=== PATIENT | male | born 1960 | race African-American/Black ===

== ENCOUNTER 2020-09-06 11:54 | Emergency (ER) | payer OTHER, SELFPAY | END 2020-09-06 13:05 | disposition home or self-care (01) | LOC: CSHERS 11:54 | DX: L03.012 Cellulitis of left finger (principal); I10 Essential (primary) hypertension; Z79.899 Other long term (current) drug therapy | CPT/HCPCS: 10060 ==

== ENCOUNTER 2020-09-09 15:57 | Inpatient (IN) | payer MEDICARE, SELFPAY ==
[2020-09-09 17:52] LABS: #Basophils 0.1 10x3/uL (0.0-0.2); #Monocytes 0.5 10x3/uL (0.0-1.1); %Basophils 0.5 % (0.0-2.0); %Lymphocytes 13.8 % (18.0-47.0); %Monocytes 4.9 % (0.0-10.0); %Neutrophils 80.6 % (40.0-75.0); Hemoglobin 14.1 g/dL (13.5-17.5); Mean Corpuscular HGB CONC 33.7 g/dL (32.0-36.0); Mean Corpuscular Hemoglobin 29.5 pg (27.0-33.0); Mean Corpuscular Volume 87.7 fl (81.2-95.1); Mean Platelet Volume 11.2 fl (7.4-10.4); Platelet Count 406 10x3/uL (150-450); RBC Distribution Width 11.5 % (11.5-14.5); Red Blood Cell (RBC) Count 4.78 10x6/uL (4.32-5.72); White Blood Cell (WBC) Count 9.9 10x3/uL (3.5-10.5)
[2020-09-09 18:07] LABS: ALT (SGPT) 22 U/L (8-55); AST (SGOT) 13 U/L (5-34); Albumin 4.6 g/dL (3.5-5.0); Alkaline Phosphatase 162 U/L (40-110); Anion Gap 26 mmol/L (10-20); BUN (Urea Nitrogen) 35 mg/dL (8.4-25.7); Bilirubin, Total 0.4 mg/dL (0.2-1.2); Calc. Creatinine Clearance 0 mL/min (70-130); Calcium 10.1 mg/dL (7.8-10.44); Carbon Dioxide 21 mmol/L (22-29); Chloride 94 mmol/L (98-107); Potassium 4.8 mmol/L (3.5-5.1); Protein, Total 9.6 g/dL (6.0-8.3); Sodium 136 mmol/L (136-145)
[2020-09-09 18:16] LABS: Bilirubin Neg (Negative); Blood, Urine Negative (Negative); Clarity Clear (Clear); Glucose, Urine (Dipstick) >=1000 mg/dL (Negative); Ketone, Urine 150 mg/dL (Negative); Leukocyte Negative (Negative); Nitrite Negative (Negative); Protein, Urine (Dipstick) 15 mg/dl (Neg-Trace); Specific Gravity, Urine 1.015 (1.002-1.036); Urobilinogen Normal mg/dL (Less than 2)
[2020-09-09 18:28] LABS: Glucose 780 mg/dL (70-105)
[2020-09-09] MEDS ORDERED: Insulin Regular 300 UNITS/3 ML VIAL ONE (19:00)
[2020-09-09] MEDS ORDERED: NS 0.9% w/ 20 MEQ KCL 1,000 ML IV PRN (19:57)
[2020-09-09] MEDS ORDERED: Sodium Chloride 0.9% 1,000 ML IV PRN ×2 (19:57)
[2020-09-09] MEDS ORDERED: Electrolyte Replacement Protocol 1 EACH IVPB PRN (19:57)
[2020-09-09] MEDS ORDERED: Dextrose 5 %-0.45 % NaCl 1,000 ML IV PRN (19:57)
[2020-09-09] MEDS ORDERED: D5 1/2 NS w/20 mEq KCL 1,000 ML IV PRN (19:57)
[2020-09-09] MEDS ORDERED: Ondansetron PF 4 MG/2 ML Vial IVP PRN (19:59)
[2020-09-09] MEDS ORDERED: Ondansetron ODT 4 MG TAB PO PRN (19:59)
[2020-09-09] MEDS ORDERED: HUMULIN R 100 UNITS in Sodium Chloride 0.9% 100 ML IVPB SCH (20:00)
[2020-09-09 20:11] LABS: Actual Bicarbonate (HCO3v) 8 mEq/L (22-28); Base Excess -17.3 mEq/L (-2.0 to +3.0); Calcium, Ionized (venous) 0.58 mmol/L (1.16-1.32); Chloride (VBG) 130 mmol/L (98-106); Hemoglobin (Hb) 5.4 g/dL (13.1-17.2); Potassium (VBG) 1.22 mmol/L (3.70-5.30); Puncture Site Other Site; Sodium 143.2 mmol/L (133-146); pH (venous) 7.28 (7.32-7.43)
[2020-09-09] MEDS ORDERED: INSULIN REGULAR IN 0.9 % NACL 100 UNIT/100 ML BAG ONE (20:20)
[2020-09-09] MEDS ORDERED: Atorvastatin Calcium 40 MG TAB PO SCH (21:00)
[2020-09-09 21:06] LABS: SARS-CoV-2 NAA Rapid Test Not Detected (NotDetected)
[2020-09-09 22:06] VITALS: BMI 26.7
[2020-09-09 22:21] LABS: Anion Gap 19 mmol/L (10-20); BUN (Urea Nitrogen) 30 mg/dL (8.4-25.7); Calc. Creatinine Clearance 56 mL/min (70-130); Calcium 9.1 mg/dL (7.8-10.44); Carbon Dioxide 20 mmol/L (22-29); Chloride 108 mmol/L (98-107); Glucose 484 mg/dL (70-105); Sodium 143 mmol/L (136-145)
[2020-09-09 22:22] LABS: Phosphorus 2.1 mg/dL (2.3-4.7)
[2020-09-09] MEDS: NS 0.9% w/ 20 MEQ KCL 1,000 ML IV PRN (22:31)
[2020-09-09] MEDS ORDERED: PHOS-NAK 1 PKT PACK PO SCH (23:15)
[2020-09-09 23:41] VITALS: TEMP 98.3
[2020-09-10] MEDS: NS 0.9% w/ 20 MEQ KCL 1,000 ML IV PRN (00:41)
[2020-09-10 01:07] LABS: Anion Gap 13 mmol/L (10-20); BUN (Urea Nitrogen) 27 mg/dL (8.4-25.7); Calc. Creatinine Clearance 66 mL/min (70-130); Calcium 8.7 mg/dL (7.8-10.44); Carbon Dioxide 25 mmol/L (22-29); Chloride 111 mmol/L (98-107); Glucose 316 mg/dL (70-105); Sodium 145 mmol/L (136-145)
[2020-09-10] MEDS ORDERED: D5 1/2 NS w/20 mEq KCL 1,000 ML IV PRN (02:39)
[2020-09-10 04:33] LABS: #Eosinphils 0.1 10x3/uL (0.0-0.5); #Monocytes 0.6 10x3/uL (0.0-1.1); #Neutrophils 4.6 10x3/uL (1.5-8.4); %Basophils 0.5 % (0.0-2.0); %Eosinophils 0.8 % (0.0-6.0); %Lymphocytes 33.1 % (18.0-47.0); %Monocytes 7.5 % (0.0-10.0); %Neutrophils 57.8 % (40.0-75.0); Hemoglobin 10.7 g/dL (13.5-17.5); Mean Corpuscular Hemoglobin 29.6 pg (27.0-33.0); Mean Corpuscular Volume 87.3 fl (81.2-95.1); Mean Platelet Volume 10.8 fl (7.4-10.4); Platelet Count 281 10x3/uL (150-450); RBC Distribution Width 11.4 % (11.5-14.5); Red Blood Cell (RBC) Count 3.61 10x6/uL (4.32-5.72); White Blood Cell (WBC) Count 7.9 10x3/uL (3.5-10.5)
[2020-09-10 04:38] LABS: Anion Gap 10 mmol/L (10-20); BUN (Urea Nitrogen) 23 mg/dL (8.4-25.7); Calc. Creatinine Clearance 87 mL/min (70-130); Carbon Dioxide 23 mmol/L (22-29); Chloride 116 mmol/L (98-107); Sodium 145 mmol/L (136-145)
[2020-09-10 04:39] LABS: Calcium 8.2 mg/dL (7.8-10.44); Glucose 213 mg/dL (70-105)
[2020-09-10] MEDS ORDERED: Dextrose 50% Abboject 50 ML SYRINGE SLOW IVP PRN (06:30)
[2020-09-10] MEDS ORDERED: HumaLOG 300 UNITS/3 ML VIAL SC SCH (06:30)
[2020-09-10] MEDS ORDERED: Dextrose 5% in Water 1,000 ML IV PRN (06:30)
[2020-09-10] MEDS ORDERED: Lantus 1000 UNITS/10 ML VIAL SC SCH (06:30)
[2020-09-10 08:58] VITALS: BP 118/64
[2020-09-10] MEDS ORDERED: Amlodipine 10 MG TAB PO SCH (09:00)
[2020-09-10] MEDS ORDERED: Enoxaparin Sodium 40 MG/0.4 ML SYRINGE SC SCH (09:00)
[2020-09-10] MEDS ORDERED: Lisinopril 20 MG TAB PO SCH (09:00)
[2020-09-10] MEDS ORDERED: Pantoprazole 40 MG VIAL IVP SCH (09:00)
[2020-09-10] MEDS ORDERED: Aspirin 325 MG TAB PO SCH (09:00)
[2020-09-10 09:30] LABS: Anion Gap 11 mmol/L (10-20); BUN (Urea Nitrogen) 24 mg/dL (8.4-25.7); Calc. Creatinine Clearance 78 mL/min (70-130); Calcium 8.4 mg/dL (7.8-10.44); Carbon Dioxide 26 mmol/L (22-29); Chloride 113 mmol/L (98-107); Glucose 330 mg/dL (70-105); Magnesium 2.5 mg/dL (1.6-2.6); Phosphorus 2.3 mg/dL (2.3-4.7); Potassium 4.1 mmol/L (3.5-5.1); Sodium 146 mmol/L (136-145)
[2020-09-10 11:18] LABS: Hemoglobin A1c Greater than 14.0 % (4.0-6.0)
[2020-09-10] MEDS: HumaLOG 300 UNITS/3 ML VIAL SC PRN ×2 (11:39→15:51)
[2020-09-10] MEDS ORDERED: glipiZIDE 5 MG TAB PO SCH ×2 (11:45→16:30)
[2020-09-10] MEDS: FLU VACC QS2020-21(6MOS UP)/PF 60 MCG/0.5 ML SYRINGE IM ONE ×2 (14:34→15:10)
[2020-09-10] MEDS ORDERED: metFORMIN 500 MG TAB PO SCH (17:00)
== END 2020-09-10 16:00 | disposition home or self-care (01) | DRG 638 ==
LOC: CSHERS 15:57 → CSHIMCU 21:23
PROVIDERS: ADMIT Family Medicine; ATTEND Family Medicine
DX: E11.10 Type 2 diabetes mellitus with ketoacidosis without coma (principal); I69.851 Hemiplegia and hemiparesis following other cerebrovascular disease affecting right dominant side; Z79.4 Long term (current) use of insulin; E78.5 Hyperlipidemia, unspecified; I12.9 Hypertensive chronic kidney disease with stage 1 through stage 4 chronic kidney disease, or unspecified chronic kidney disease; E11.22 Type 2 diabetes mellitus with diabetic chronic kidney disease; N18.31 Chronic kidney disease, stage 3a; Z87.891 Personal history of nicotine dependence; Z20.828 Contact with and (suspected) exposure to other viral communicable diseases
CPT/HCPCS: 0240U; 36415; 36416; 80048; 80053; 81003; 82010; 82805; 83036; 83735; 84100; 84484; 85025; 90471; 90662; 93005; 96374; 96376; C9113; G0008; J1650; J1815; J2405; J3480

== ENCOUNTER 2021-05-02 09:27 | Emergency (ER) | payer MEDICARE ==
[2021-05-02] MEDS ORDERED: Fluorescein Opthalmic Strip ONE (11:26)
[2021-05-02] MEDS ORDERED: Proparacaine 0.5% Opth 15 ML BOT R EYE SCH (11:30)
[2021-05-02] MEDS ORDERED: HYDROcodone/Acetaminophen 5/325 mg Tablet ONE (12:12)
== END 2021-05-02 12:18 | disposition home or self-care (01) ==
LOC: CSHERS 09:27
DX: B02.9 Zoster without complications (principal); E11.9 Type 2 diabetes mellitus without complications; I10 Essential (primary) hypertension; Z79.899 Other long term (current) drug therapy; Z79.82 Long term (current) use of aspirin; Z79.4 Long term (current) use of insulin
CPT/HCPCS: 99282

== ENCOUNTER 2021-05-31 17:37 | Emergency (ER) | payer MEDICARE ==
[2021-05-31] MEDS ORDERED: Bupivacaine PF 0.5% 30 ML VIAL ONE (18:01)
[2021-05-31] MEDS ORDERED: Lidocaine 1% (PF) 30 ML VIAL ONE (18:01)
[2021-05-31] MEDS ORDERED: Bacitracin 1 PK ONE (19:12)
== END 2021-05-31 19:22 | disposition home or self-care (01) ==
LOC: CSHERS 17:37
DX: S61.211A Laceration without foreign body of left index finger without damage to nail, initial encounter (principal); I10 Essential (primary) hypertension; E11.9 Type 2 diabetes mellitus without complications; I63.9 Cerebral infarction, unspecified; Z79.4 Long term (current) use of insulin; Z79.82 Long term (current) use of aspirin; Z79.899 Other long term (current) drug therapy; W26.8XXA Contact with other sharp object(s), not elsewhere classified, initial encounter
CPT/HCPCS: 12001; J2001; S0020

== ENCOUNTER 2023-04-15 10:00 | Emergency (ER) | payer MEDICARE ==
[2023-04-15 11:08] LABS: Actual Bicarbonate (HCO3v) 20.8 mEq/L (22-28); Base Excess 0.3 mEq/L (-2 - +2); Calcium, Ionized (venous) 1.02 mmol/L (1.16-1.32); Chloride (VBG) 100 mmol/L (98-106); Hematocrit-VBG 39 % (42.0-52.0); Hemoglobin (Hb) 13.3 g/dL (13.1-17.2); Potassium (VBG) 3.98 mmol/L (3.70-5.30); Puncture Site Other Site; Sodium 135 mmol/L (133-146); pH (venous) 7.564 (7.32-7.43)
[2023-04-15 11:18] LABS: #Basophils 0.1 10x3/uL (0.0-0.2); #Eosinphils 0.1 10x3/uL (0.0-0.5); #Monocytes 0.4 10x3/uL (0.0-1.1); #Neutrophils 2.8 10x3/uL (1.5-8.4); %Eosinophils 2.3 % (0.0-6.0); %Lymphocytes 35.3 % (18.0-47.0); %Monocytes 7.4 % (0.0-10.0); %Neutrophils 53.6 % (40.0-75.0); Hematocrit 35.6 % (38.8-50.0); Hemoglobin 12.7 g/dL (13.5-17.5); Mean Corpuscular HGB CONC 35.7 g/dL (32.0-36.0); Mean Corpuscular Hemoglobin 29.8 pg (27.0-33.0); Mean Corpuscular Volume 83.6 fl (81.2-95.1); Mean Platelet Volume 10.4 fl (7.4-10.4); Platelet Count 279 10x3/uL (150-450); RBC Distribution Width 11.3 % (11.5-14.5); Red Blood Cell (RBC) Count 4.26 10x6/uL (4.32-5.72); White Blood Cell (WBC) Count 5.2 10x3/uL (3.5-10.5)
[2023-04-15 11:31] LABS: ALT (SGPT) 33 U/L (8-55); AST (SGOT) 26 U/L (5-34); Albumin 4.4 g/dL (3.4-4.8); Alkaline Phosphatase 114 U/L (40-110); Anion Gap 16 mmol/L (10-20); BUN (Urea Nitrogen) 18 mg/dL (8.4-25.7); Bilirubin, Total 0.7 mg/dL (0.2-1.2); Calc. Creatinine Clearance 0 mL/min (70-130); Calcium 9.9 mg/dL (7.8-10.44); Carbon Dioxide 25 mmol/L (23-31); Chloride 100 mmol/L (98-107); Estimated GFR 70; Globulin 4.1 g/dL (2.4-3.5); Glucose 354 mg/dL (80-115); Potassium 3.7 mmol/L (3.5-5.1); Protein, Total 8.5 g/dL (5.8-8.1); Sodium 137 mmol/L (136-145)
[2023-04-15] MEDS ORDERED: Insulin Regular 300 UNITS/3 ML VIAL ONE (11:39)
== END 2023-04-15 11:44 | disposition home or self-care (01) ==
LOC: CSHERS 10:00
DX: E11.65 Type 2 diabetes mellitus with hyperglycemia (principal); I10 Essential (primary) hypertension
CPT/HCPCS: 36416; 80053; 82805; 85025; 99284; J1815

== ENCOUNTER 2024-03-26 11:27 | Emergency (ER) | payer MEDICARE | END 2024-03-26 12:35 | disposition home or self-care (01) | LOC: CSHERS 11:27 | DX: M54.32 Sciatica, left side (principal); I10 Essential (primary) hypertension; E11.9 Type 2 diabetes mellitus without complications | CPT/HCPCS: 99284 ==

== ENCOUNTER 2024-04-15 15:01 | Emergency (ER) | payer MEDICARE ==
[2024-04-15] MEDS ORDERED: Dexamethasone 10 MG/ML VIAL ONE (16:18)
== END 2024-04-15 16:31 | disposition home or self-care (01) ==
LOC: CSHERS 15:01
DX: M54.41 Lumbago with sciatica, right side (principal); I10 Essential (primary) hypertension; E11.9 Type 2 diabetes mellitus without complications; Z86.73 Personal history of transient ischemic attack (TIA), and cerebral infarction without residual deficits
CPT/HCPCS: 99283; J1100